=== PATIENT | male | born 1990 | race American Indian/Alaskan Native ===

== ENCOUNTER 2017-01-01 23:00 | Emergency (ER) | payer BC, OTHER ==
--- NOTE | 2017-01-01 23:52 | PDOC ---
History of Present Illness - General Stated Complaint: LACERATION Time Seen by Provider: 01/01/17 23:47 - History of Present Illness Initial Comments: Healthy 26 year old male presenting with bleeding over the lateral superior portion of his left eye brow that started at 16:00 on the day of presentation after he attempted "pop a pimple". He states that there was immediately some blood that came out of the lesion and he placed bandage over top of it but every time he attempted to check on the wound it was still bleeding. He was concerned at wanted to seek attention to help stop the bleeding. He is not on blood thinners or other medications. He denies lightheadedness, palpitations, fevers, chills, nausea vomiting, or other sick symptoms. 01/01/17 23:52 Past History - Past Medical History Allergies/Adverse Reactions: Allergies Allergy/AdvReac Type Severity Reaction Status Date / Time No Known Drug Allergies Allergy Verified 01/02/17 00:52 Home Medications: Ambulatory Orders Oxycodone HCl/Acetaminophen [Percocet 5-325 mg Tablet -] 1 - 2 tab PO Q6H #60 tab MDD 4 09/21/15 Acetaminophen [Tylenol] 650 mg PO PRN PRN 01/02/17 Anemia: No Asthma: No Cancer: No Cardiac Disorders: No CVA: No COPD: No CHF: No Dementia: No Diabetes: No GI Disorders: No Disorders: No HTN: No Hypercholesterolemia: No Liver Disease: No Seizures: No Thyroid Disease: No - Surgical History Orthopedic Surgery: Yes (L WRIST TENDON) - Psycho/Social/Smoking Cessation Hx Suicidal Ideation: No Smoking History: Never smoked Have you smoked in the past 12 months: No Hx Alcohol Use: Yes (OCCAS) Drug/Substance Use Hx: No Substance Use Type: None Hx Substance Use Treatment: No Review of Systems - Review of Systems Constitutional: No: Chills, Diaphoresis, Fever HEENTM: No: Eye Pain, Blurred Vision, Recent change in vision Respiratory: No: Cough, Shortness of Breath Cardiac (ROS): No: Chest Pain, Edema, Irregular Heart Rate ABD/GI: No: Constipated, Diarrhea, Nausea, Vomiting *Physical Exam - Physical Exam General Appearance: Yes: Nourished, Appropriately Dressed. No: Apparent Distress HEENT: positive: EOMI, EULALIA, Normal Voice, Other (Small punctate lesion over the lateral superior portion of his left eyebrow that is exuding sanguinous fluid. Nathaniel area is surrounded by a purple sho measuring apprximately 4- 5 cm in diameter with irregular borders.). negative: Normal ENT Inspection Neck: positive: Trachea midline, Normal Thyroid, Supple. negative: Tender, Rigid Respiratory/Chest: positive: Lungs Clear, Normal Breath Sounds. negative: Chest Tender, Respiratory Distress Cardiovascular: positive: Regular Rhythm, Regular Rate, S1, S2. negative: Edema Gastrointestinal/Abdominal: positive: Normal Bowel Sounds, Flat, Soft. negative : Tender Musculoskeletal: positive: Normal Inspection Integumentary: positive: Dry, Warm, Other (pathology per HEENT section) Neurologic: positive: Fully Oriented, Alert, Normal Mood/Affect Medical Decision Making - Medical Decision Making Healthy 26 year old with bleeding from a punctate lesion where he attempted to "pop a pimple". This area is more vascualr at baseline because of a congenital hemangioma/ sho underlying the site which is why he has had trouble controlling the hemorrhage. A piece of 2x2 gauze and nylon tape was placed over the wound with adequate hemostasis and hemorrhage control. Given return precautions and sent home. 01/02/17 00:08 01/05/17 00:07 *DC/Admit/Observation/Transfer Diagnosis at time of Disposition: Hemorrhage of skin lesion - Discharge Dispostion Disposition: HOME Admit: No - Referrals Referrals: Emily Haines MD [Primary Care Provider] - - Patient Instructions Additional Instructions: You were seen for bleeding of your forehead after you attempted to pop a pimple. We recommend keeping the dressing on for at least one day. Be sure to avoid hitting the area, rubbing the area, or getting it wet. You can change the dressing at home after one day. If it is still bleeding after one day then please return to the ED. Also return to the ED if you have any swelling in that area, fevers, chills, or other sick symptoms. - Attestations Physician Attestion: Attested by Dr. Au 01/02/17 00:18
--- NOTE | 2017-01-02 00:18 | PDOC ---
Attending Attestation - Resident Resident Name: Gurmeet Au - ED Attending Attestation I have performed the following: I have examined & evaluated the patient, The case was reviewed & discussed with the resident, I agree w/resident's findings & plan, Exceptions are as noted - HPI HPI: 01/02/17 00:17 pt tried to poke pimple to left lateral eyebrow pt has been since. - Physicial Exam PE: 01/02/17 00:15 *Physical Exam General Appearance: Yes: Appropriately Dressed. No: Apparent Distress, Intoxicated HEENT: positive: EOMI, EULALIA, Normal ENT, small lesion to left eyebrow, no active bleeding Normal Voice, TMs Normal, Pharynx Normal. negative: Pale Conjunctivae, Photophobia, Scleral Icterus (R), Scleral Icterus (L) Neck: positive: Trachea midline, Normal Thyroid, Supple. negative: Tender, Rigid, Carotid bruit, Stridor, Lymphadenopathy (R), Lymphadenopathy (L), Thyromegaly Respiratory/Chest: positive: Lungs Clear, Normal Breath Sounds. negative: Chest Tender, Respiratory Distress, Accessory Muscle Use, Labored Respiration, RES, Crackles, Rales, Rhonchi, Stridor, Wheezing, Dullness Cardiovascular: positive: Regular Rhythm, Regular Rate, S1, S2. negative: Edema , JVD, Murmur, Bradycardia, Tachycardia Vascular Pulses: Dorsalis-Pedis (R): 2+, Doralis-Pedis (L): 2+ Gastrointestinal/Abdominal: positive: Normal Bowel Sounds, Flat, Soft. negative : Tender, Organomegaly, Pulsatile Mass, Increased Bowel Sounds, Decreased BS, Distended, Guarding, Rebound, Hernia, Hepatomegaly, Spleenomegaly Lymphatic: negative: Adenopathy, Tenderness Musculoskeletal: positive: Normal Inspection. negative: CVA Tenderness, Decreased Range of Motion Extremity: positive: Normal Capillary Refill, Normal Inspection, Normal Range of Motion, Pelvis Stable. negative: Tender, Pedal Edema, Swelling, Erythema Integumentary: positive: Normal Color, Dry, Warm. negative: Cyanotic, Erythema , Jaundice, Rash Neurologic: positive: irrigator gravity flow II-XII NML intact, Fully Oriented, Alert, Normal Mood/ Affect, Motor Strength 5/5. negative: EOM Palsy, Facial Droop, Sensory Deficit - Medical Decision Making 01/02/17 00:16 Pressure dressing to area and discharged.
[2017-01-02 00:48] VITALS: BP 134/72; PULSE 80; TEMP 98.2; BMI 24.7
== END 2017-01-02 00:52 | disposition home or self-care (01) ==
LOC: JER 23:00
DX: S01.81XA Laceration without foreign body of other part of head, initial encounter (principal); L98.8 Other specified disorders of the skin and subcutaneous tissue; X58.XXXA Exposure to other specified factors, initial encounter; Y93.89 Activity, other specified; Y92.89 Other specified places as the place of occurrence of the external cause
CPT/HCPCS: 99283-25